=== PATIENT | female | born 1990 | race African-American/Black ===

== ENCOUNTER 2022-08-08 17:47 | Emergency (ER) | payer OTHER ==
[~2022-08-08] VITALS: Ht 162.6 cm; Wt 66.2 kg
[2022-08-08] MEDS ORDERED: METOCLOPRAMIDE HCL 5 MG/ML 2 ML VIAL IVP ONE (18:45)
[2022-08-08] MEDS ORDERED: SODIUM CHLORIDE 0.9% 1,000 ML IV ONE ×2 (18:45→22:45)
[2022-08-08 18:57] LABS: BASOPHILS % (AUTO) 0.1 % (0.0-2.0); EOSINOPHILS % (AUTO) 0 % (1.0-6.0); HEMATOCRIT 28.6 % (36-46); HEMOGLOBIN 9.2 g/dL (12.0-16.0); LYMPHOCYTES # (AUTO) 1.2 K/uL (1.0-4.8); LYMPHOCYTES % (AUTO) 7.8 % (22.0-44.0); MEAN CORPUSCULAR HEMOGLOBIN 29.6 pg (26.0-34.0); MEAN CORPUSCULAR HGB CONC 32.2 G/dL (31.0-37.0); MEAN CORPUSCULAR VOLUME 92 fL (80-100); MONOCYTES # (AUTO) 0.3 K/uL (0.1-1.0); MONOCYTES % (AUTO) 2.2 % (2.0-9.0); NEUTROPHILS # (AUTO) 13.4 K/uL (1.8-7.7); PLATELET COUNT (AUTO) 141 K/uL (150-450); RED BLOOD CELL COUNT(AUTO) 3.11 MIL/uL (4.00-5.20); RED CELL DISTRIBUTION WIDTH 14.1 % (11.5-14.5)
[2022-08-08 19:02] LABS: NEUTROPHILS % (AUTO) 89.9 % (40.0-70.0)
[2022-08-08 19:07] LABS: CALCIUM, TOTAL 8.3 mg/dL (8.8-10.5); CREATININE 1.55 mg/dL (0.60-1.30); POTASSIUM 4.7 mmol/L (3.5-5.1)
[2022-08-08 19:12] LABS: ALBUMIN 2.9 g/dL (3.4-5.0); BILIRUBIN,TOTAL 0.3 mg/dL (0.1-1.0); TOTAL PROTEIN, SERUM 6.2 g/dL (6.4-8.2)
[2022-08-08 21:28] LABS: COVID AG,FIA SOURCE NASOPHARYNGEAL
[2022-08-08 22:04] LABS: INR 0.9 (0.9-1.1)
[2022-08-08 23:26] LABS: HEMATOCRIT 23.4 % (36-46); HEMOGLOBIN 7.4 g/dL (12.0-16.0)
[2022-08-09 00:51] VITALS: BP 120/79
== END 2022-08-09 00:35 | disposition short-term general hospital (02) ==
LOC: EMS 17:49
DX: O00.90 Unspecified ectopic pregnancy without intrauterine pregnancy (principal); Z20.822 Contact with and (suspected) exposure to COVID-19
CPT/HCPCS: 99285; 36430; 96374; 76801; 96361; 87426; 80053; 84702; 84703; 85025; 85610; 85730; 86850; 86900; 86901; 86923; 76817; 85018; 85014; 36415; P9016; J2765; J7030

== ENCOUNTER 2024-01-21 15:46 | Emergency (ER) | payer MEDICAID, OTHER ==
[~2024-01-21] VITALS: Ht 160 cm; Wt 59.1 kg
[2024-01-21 15:52] VITALS: TEMP 98.1
[2024-01-21 17:01] LABS: BASOPHILS % (AUTO) 0.6 % (0.0-2.0); EOSINOPHILS % (AUTO) 1.1 % (1.0-6.0); HEMATOCRIT 38.4 % (36-46); HEMOGLOBIN 12.1 g/dL (12.0-16.0); LYMPHOCYTES # (AUTO) 2.5 K/uL (1.0-4.8); MEAN CORPUSCULAR HGB CONC 31.6 G/dL (31.0-37.0); MEAN CORPUSCULAR VOLUME 92 fL (80-100); MONOCYTES # (AUTO) 0.7 K/uL (0.1-1.0); MONOCYTES % (AUTO) 8.6 % (2.0-9.0); NEUTROPHILS # (AUTO) 4.8 K/uL (1.8-7.7); NEUTROPHILS % (AUTO) 58.7 % (40.0-70.0); PLATELET COUNT (AUTO) 147 K/uL (150-450); RED BLOOD CELL COUNT(AUTO) 4.18 MIL/uL (4.00-5.20); WHITE BLOOD COUNT (AUTO) 8.1 K/uL (4.5-11.0)
[2024-01-21 17:17] LABS: HCG,QUANTITATIVE 7108 mIU/mL (0-6)
[2024-01-21 17:53] LABS: ANION GAP 15 mmol/L (8-16); CALCIUM, TOTAL 9.4 mg/dL (8.8-10.5); CARBON DIOXIDE 22 mmol/L (22-29); CHLORIDE 101 mmol/L (98-107); CREATININE 0.95 mg/dL (0.60-1.30); GLOMERULAR FILTR. RATE CALC > 60 mL/min (>60); GLUCOSE,RANDOM 98 mg/dL (70-110); POTASSIUM 4.4 mmol/L (3.5-5.1); SODIUM SERUM 138 mmol/L (136-145); UREA NITROGEN, BLOOD 21 mg/dL (7-18)
[2024-01-21] MEDS: SODIUM CHLORIDE 0.9% 1,000 ML IV ONE (19:13)
[2024-01-21 21:02] VITALS: BP 102/59; PULSE 101; RESP 18; O2SAT 99
== END 2024-01-21 21:07 | disposition admitted as inpatient to this hospital (09) ==
LOC: EMS 15:46
DX: O00.101 Right tubal pregnancy without intrauterine pregnancy (principal)
CPT/HCPCS: 99285; 96360; 76801; 80048; 84702; 85025; 86901; 36415; J7030